=== PATIENT | female | born 1965 | race American Indian/Alaskan Native ===

== ENCOUNTER 2017-05-04 06:24 | Day surgery (SDC) | payer MEDICARE ==
[2017-05-04] MEDS ORDERED: WATER FOR IRRIG STERILE ONE (07:12)
[2017-05-04] MEDS ORDERED: WATER FOR IRRIG STERILE IR ONE (07:12)
[2017-05-04] MEDS ORDERED: DIPRIVAN 10 MG/ML IV ONE ×2 (07:34)
--- NOTE | 2017-05-04 08:25 | Anesthesia Day of Surgery ---
Anesthesia Day of Surgery - Day of Surgery Patient Examined: Yes Patient H&P Reviewed: Yes Patient is NPO: Yes
--- NOTE | 2017-05-04 08:25 | Anesthesia Consultation ---
Anesthesia Consult and Med Hx Date of service: 05/04/17 - Airway Anesthetic Teeth Evaluation: Good ROM Head & Neck: Adequate Mental/Hyoid Distance: Adequate Mallampati Class: Class II Intubation Access Assessment: Probably Good - Pulmonary Exam CTA: Yes - Cardiac Exam Cardiac Exam: RRR - Pre-Operative Health Status ASA Pre-Surgery Classification: ASA3 Proposed Anesthetic Plan: MAC - Pulmonary Hx Smoking: No Hx Sleep Apnea: No - Cardiovascular System Hx Hypertension: Yes Hx Peripheral Vascular Disease: Yes (glaucoma) - Central Nervous System Hx Seizures: No Hx Psychiatric Problems: No - Gastrointestinal Hx Gastroesophageal Reflux Disease: Yes - Endocrine Hx Renal Disease: Yes Hx Insulin Dependent Diabetes: Yes - Hematic Hx Anemia: Yes Hx Sickle Cell Disease: No - Other Systems Hx Alcohol Use: No Hx Substance Use: No Hx Cancer: No Hx Obesity: Yes
[2017-05-04] MEDS ORDERED: XYLOCAINE MPF 2% ONE (08:30)
--- NOTE | 2017-05-04 09:01 | Short Stay Summary ---
Short Stay Documentation - Allergies and Medications Current Medications: Allergies codeine Allergy (Verified 05/04/17 07:42) Nausea Active Medications Sodium Chloride (Nacl 0.9% 1000 Ml) 1,000 mls @ 50 mls/hr IV DIRECT LUKE - Brief post op/procedure progress note Date of procedure: 05/04/17 Pre-op diagnosis: colon cancer screening Post-op diagnosis: same (Incomplete colonoscopy due to an unacceptable prep) Procedure: incomplete colonoscopy due to unacceptable prep Anesthesia: MAC Findings: as above Surgeon: KEITH MALDONADO Estimated blood loss: none Pathology: none Condition: stable - Disposition Condition at discharge: Stable Disposition: DC-01 TO HOME OR SELFCARE Short Stay Discharge Plan Activity: no restrictions Diet: regular, renal Follow up with: FARNAZ DE LEON MD [Primary Care Provider] - 7 Days
[2017-05-04] MEDS: NACL 0.9% 1000 ML 1,000 ML IV SCH ×2 (09:09→09:49)
--- NOTE | 2017-05-04 09:16 | Post Anesthesia Evaluation ---
- Post Anesthesia Evaluation Patient Participated: Yes Airway Patent: Yes Stable Respiratory Function: Yes Nausea/Vomiting: No Temp > 96.8F: Yes Pain Manageable: Yes Adequeate Hydration: Yes Anesthesia Complications: No Block Receding Appropriately: Not Applicable Patient on Ventilator: No
[2017-05-04 09:42] VITALS: BP 145/71
== END 2017-05-04 06:25 | disposition home or self-care (01) ==
LOC: GIO 06:24
PROVIDERS: ATTEND Internal Medicine Gastroenterology
DX: Z09 Encounter for follow-up examination after completed treatment for conditions other than malignant neoplasm (principal); E11.22 Type 2 diabetes mellitus with diabetic chronic kidney disease; I12.0 Hypertensive chronic kidney disease with stage 5 chronic kidney disease or end stage renal disease; N18.6 End stage renal disease; E11.39 Type 2 diabetes mellitus with other diabetic ophthalmic complication; H40.9 Unspecified glaucoma; K21.9 Gastro-esophageal reflux disease without esophagitis; Z79.4 Long term (current) use of insulin; Z98.51 Tubal ligation status; Z98.890 Other specified postprocedural states; Z99.2 Dependence on renal dialysis; Z88.5 Allergy status to narcotic agent; Z91.012 Allergy to eggs
CPT/HCPCS: 82962; G0105; J2704; J7030